=== PATIENT | male | born 1960 | race African-American/Black ===

== ENCOUNTER 2024-05-10 10:28 | Inpatient (IN) | payer MEDICARE, OTHER ==
[~2024-05-10] VITALS: Ht 172.7 cm; Wt 68.0 kg
[~2024-05-10 10:28] MED LIST: DILT30TA3 PO
[2024-05-10 10:34] VITALS: O2SAT 98
[2024-05-10] MEDS: SODIUM CHLORIDE 0.9% 1000ML BAG (SEPSIS BOLUS) IV ONE (11:23)
[2024-05-10] MEDS: PIPERACILLIN/TAZO 3.375G/50ML 50 ML IV ONE (11:56)
[2024-05-10 12:24] LABS: HEMATOCRIT. 33.8 % (42.0-52.0); HEMOGLOBIN. 11.2 g/dL (14.0-18.0); INR 0.9; MEAN CORPUSCULAR HEMOGLOBIN 28.4 pg (28.0-32.0); MEAN CORPUSCULAR HGB CONC 33.2 g/dL (31.0-37.0); MEAN CORPUSCULAR VOLUME 85.6 fL (80.0-94.0); MEAN PLATELET VOLUME 8.3 fl (7.4-10.4); PLATELET 275 x1000/uL (130-400); RED BLOOD CELL COUNT 3.95 mill/uL (4.7-6.1); RED CELL DISTRIBUTION WIDTH 15.7 % (11.6-14.6); WHITE BLOOD COUNT 15.3 x1000/uL (4.5-11.0)
[2024-05-10 12:25] LABS: CARBON DIOXIDE 22 mEq/L (21-32); CHLORIDE 103 mEq/L (98-107); POTASSIUM 5.1 mEq/L (3.5-5.1); SODIUM 135 mEq/L (136-145)
[2024-05-10 12:26] LABS: CALCIUM 10.1 mg/dL (8.7-10.4)
[2024-05-10 12:30] LABS: TROPONIN I HIGH SENSITIVITY 43 ng/L (3.0-53); UREA NITROGEN BLOOD 43 mg/dL (9-23)
[2024-05-10 12:32] LABS: ALBUMIN 4.5 g/dL (3.2-4.8); ASPARTATE AMINOTRANSFERASE 20 IU/L (<34); CREATINE KINASE 463 IU/L (46-171)
[2024-05-10 12:33] LABS: BILIRUBIN DIRECT 0.3 mg/dL (<=3.0); PROTEIN TOTAL 7.1 g/dL (6.0-8.3)
[2024-05-10 13:01] LABS: DIFFERENTIAL COMMENT 1
[2024-05-10 13:03] LABS: ALANINE AMINOTRANSFERASE < 7 IU/L (10-49)
[2024-05-10 13:34] LABS: CREATININE 1.7 mg/dL (0.6-1.3)
[2024-05-10 13:35] LABS: ETHANOL BLOOD < 10 mg/dL (<10)
[2024-05-10 13:37] LABS: GLUCOSE 42 mg/dL (70-105)
[2024-05-10] MEDS: DEXTROSE 50% WATER 50ML SYRINGE IV NR (13:50)
[2024-05-10] MEDS ORDERED: ONDANSETRON HCL 4MG/2ML INJ IV PRN (14:30)
[2024-05-10] MEDS ORDERED: DOXYCYCLINE 100MG/100ML 100 ML IV SCH (15:00)
[2024-05-10] MEDS: LISINOPRIL 40MG TABLET PO SCH (15:30)
[2024-05-10] MEDS: THIAMINE HCL 100MG TABLET PO SCH (15:30)
[2024-05-10] MEDS: AMLODIPINE 10MG TABLET PO SCH (15:30)
[2024-05-10] MEDS: HYDROCHLOROTHIAZIDE 25MG TABLET PO SCH (15:30)
[2024-05-10] MEDS ORDERED: LISI40TA13 PO (15:44)
[2024-05-10] MEDS ORDERED: ATOR40TA70 PO (15:44)
[2024-05-10] MEDS ORDERED: INSU100I24 SUBCUT (15:44)
[2024-05-10] MEDS ORDERED: HYDR25TA PO (15:44)
[2024-05-10] MEDS ORDERED: ASPI-1406 PO (15:44)
[2024-05-10] MEDS ORDERED: AMLO10TA80 PO (15:44)
[2024-05-10 15:53] LABS: ANISOCYTOSIS 1+; PLATELET ESTIMATE NORMAL
[2024-05-10] MEDS: DEXT 5%/0.9% NACL 1,000 ML IV SCH (18:40)
[2024-05-10] MEDS: DOXYCYCLINE 100MG/100ML 100 ML IV SCH (18:59)
[2024-05-10] MEDS ORDERED: PIPERACILLIN/TAZO 3.375G/50ML 50 ML IV SCH (20:00)
[2024-05-10] MEDS: PIPERACILLIN/TAZO 3.375G/50ML 50 ML IV SCH (20:35)
[2024-05-10] MEDS: SODIUM CHLORIDE 0.9% 500 ML IV ONE ×2 (20:55→21:32)
[2024-05-10 22:00] VITALS: BP 110/78; PULSE 109; RESP 20; TEMP 36.8072
[2024-05-11] VITALS: BP 101/60; PULSE 79; RESP 18; TEMP 36.78072; O2SAT 97
[2024-05-11] MEDS: ATORVASTATIN CALCIUM 40MG TABLET PO SCH (00:24)
[2024-05-11 04:00] VITALS: BP 101/68; PULSE 113; RESP 20; TEMP 36.89184; O2SAT 98
[2024-05-11 05:26] LABS: BASOPHILS % 0.1 % (0.0-2.0); EOSINOPHILS % 0.3 % (0.0-5.0); HEMATOCRIT. 30.1 % (42.0-52.0); HEMOGLOBIN. 10.2 g/dL (14.0-18.0); LYMPHOCYTES % 7.5 % (20.0-50.0); MEAN CORPUSCULAR HEMOGLOBIN 28.8 pg (28.0-32.0); MEAN CORPUSCULAR HGB CONC 33.8 g/dL (31.0-37.0); MEAN CORPUSCULAR VOLUME 85.4 fL (80.0-94.0); MEAN PLATELET VOLUME 8.5 fl (7.4-10.4); MONOCYTES % 3.1 % (2.0-8.0); PLATELET 246 x1000/uL (130-400); RED BLOOD CELL COUNT 3.53 mill/uL (4.7-6.1); RED CELL DISTRIBUTION WIDTH 15.8 % (11.6-14.6); WHITE BLOOD COUNT 18.2 x1000/uL (4.5-11.0)
[2024-05-11 05:54] LABS: CHLORIDE 100 mEq/L (98-107); SODIUM 133 mEq/L (136-145)
[2024-05-11 05:55] LABS: CALCIUM 9.8 mg/dL (8.7-10.4); CARBON DIOXIDE 25 mEq/L (21-32)
[2024-05-11 06:00] LABS: CREATININE 1.2 mg/dL (0.6-1.3)
[2024-05-11 06:01] LABS: UREA NITROGEN BLOOD 31 mg/dL (9-23)
[2024-05-11 06:11] LABS: GLUCOSE 202 mg/dL (70-105)
[2024-05-11 08:00] VITALS: BP 91/64; PULSE 70; RESP 18; TEMP 36.72516; O2SAT 95
[2024-05-11] MEDS: ASPIRIN 81MG EC TABLET PO SCH (08:23)
[2024-05-11] MEDS: SODIUM CHLORIDE 0.9% 1,000 ML IV SCH (08:23)
[2024-05-11 12:00] VITALS: BP 106/68; PULSE 124; RESP 18; TEMP 36.44736; O2SAT 96
[2024-05-11 16:00] VITALS: BP 96/68; PULSE 122; RESP 18; TEMP 36.3918; O2SAT 98
[2024-05-11 19:39] LABS: CLARITY URINE CLEAR (CLEAR); COLOR URINE YELLOW (YELLOW); GLUCOSE URINE 3+ (NEGATIVE); KETONES URINE NEGATIVE (NEGATIVE); LEUKOCYTE ESTERASE URINE NEGATIVE (NEGATIVE); NITRITE URINE NEGATIVE (NEGATIVE); OCCULT BLOOD URINE NEGATIVE (NEGATIVE); PROTEIN URINE NEGATIVE (NEGATIVE); SPECIFIC GRAVITY URINE 1.019 (1.005-1.030)
[2024-05-11 19:57] LABS: *AMPHETAMINES SCREEN URINE NEGATIVE (NEGATIVE); *BARBITURATES SCREEN URINE NEGATIVE (NEGATIVE); *BENZODIAZEPINES SCREEN URINE NEGATIVE (NEGATIVE); *COCAINE SCREEN URINE NEGATIVE (NEGATIVE); CANNABINOID URINE SCREEN NEGATIVE (NEGATIVE); ECSTASY MDMA SCREEN URINE NEGATIVE (NEGATIVE); METHADONE URINE SCREEN NEGATIVE (NEGATIVE); OPIATES URINE SCREEN PRESUMPTIVE POSITIVE (NEGATIVE); PHENCYCLIDINE URINE SCREEN NEGATIVE (NEGATIVE)
[2024-05-11 20:00] VITALS: BP 96/71; PULSE 114; RESP 16; TEMP 36.16956; O2SAT 95
[2024-05-11 20:01] LABS: BACTERIA URINE TRACE; RBC URINE NONE SEEN /hpf (0-2); SQUAMOUS EPITHELIAL CELL URINE RARE /lpf (RARE/1+); WBC URINE 0-2 /hpf (0-2)
[2024-05-12] VITALS: BP 107/74; PULSE 121; RESP 18; TEMP 36.50292; O2SAT 95
[2024-05-12 07:34] LABS: CARBON DIOXIDE 23 mEq/L (21-32); CHLORIDE 104 mEq/L (98-107); POTASSIUM 4.1 mEq/L (3.5-5.1); SODIUM 137 mEq/L (136-145)
[2024-05-12 07:35] LABS: CALCIUM 10.3 mg/dL (8.7-10.4)
[2024-05-12 07:40] LABS: CREATININE 0.9 mg/dL (0.6-1.3); GLUCOSE 157 mg/dL (70-105); UREA NITROGEN BLOOD 18 mg/dL (9-23)
[2024-05-12 08:00] VITALS: BP 96/70; PULSE 130; RESP 18; TEMP 37.11408; O2SAT 97
[2024-05-12] MEDS ORDERED: SODIUM CHLORIDE 0.9% 100 ML IV ONE (09:00)
[2024-05-12] MEDS: DEXT 5%/0.9% NACL 1,000 ML IV SCH (09:30)
[2024-05-12] MEDS: SODIUM CHLORIDE 0.9% 1,000 ML IV SCH (09:35)
[2024-05-12 11:35] LABS: BASOPHILS % 0.2 % (0.0-2.0); EOSINOPHILS % 0.3 % (0.0-5.0); HEMATOCRIT. 27.2 % (42.0-52.0); HEMOGLOBIN. 9.2 g/dL (14.0-18.0); MEAN CORPUSCULAR HGB CONC 33.8 g/dL (31.0-37.0); MEAN CORPUSCULAR VOLUME 85.6 fL (80.0-94.0); MEAN PLATELET VOLUME 8.6 fl (7.4-10.4); MONOCYTES % 6.5 % (2.0-8.0); PLATELET 246 x1000/uL (130-400); RED BLOOD CELL COUNT 3.17 mill/uL (4.7-6.1); RED CELL DISTRIBUTION WIDTH 15.7 % (11.6-14.6); WHITE BLOOD COUNT 13.9 x1000/uL (4.5-11.0)
[2024-05-12 12:00] VITALS: BP 107/71; PULSE 115; RESP 18; TEMP 36.44736; O2SAT 97
[2024-05-12 12:00] LABS: FOLIC ACID (FOLATE) SERUM 4.38 ng/mL (>5.38)
[2024-05-12 12:01] LABS: VITAMIN B12 SERUM 724 pg/mL (211-911)
[2024-05-12 16:00] VITALS: BP 105/76; PULSE 101; RESP 18; TEMP 36.44736; O2SAT 98
[2024-05-12 20:00] VITALS: BP 117/76; PULSE 102; RESP 18; TEMP 36.28068; O2SAT 95
[2024-05-13] VITALS: BP 111/77; PULSE 93; RESP 20; TEMP 36.22512; O2SAT 98
[2024-05-13 04:00] VITALS: BP 122/86; PULSE 102; RESP 18; TEMP 36.33624; O2SAT 96
[2024-05-13 07:37] LABS: PREALBUMIN 6.5 mg/dl (10.0-40.0)
[2024-05-13 08:00] VITALS: BP 113/82; PULSE 114; RESP 18; TEMP 36.78072; O2SAT 99
[2024-05-13 12:00] VITALS: BP 120/78; PULSE 101; RESP 18; TEMP 36.83628; O2SAT 99
[2024-05-13 16:00] VITALS: BP 136/68; PULSE 109; RESP 18; TEMP 36.55848; O2SAT 100
[2024-05-13 20:00] VITALS: BP_SYST 102; BP_SYST 98; BP_DIAS 65; BP_DIAS 69; PULSE 90; PULSE 91; RESP 16; RESP 17; TEMP 36.44736; TEMP 36.61404; O2SAT 100; O2SAT 99
[2024-05-14] VITALS: BP 98/65; PULSE 90; RESP 16; TEMP 36.61404; O2SAT 99
[2024-05-14 04:00] VITALS: BP 118/68; PULSE 98; RESP 20; TEMP 36.114; O2SAT 98
[2024-05-14 08:00] VITALS: BP 100/69; PULSE 87; RESP 18; TEMP 36.55848; O2SAT 98
[2024-05-14 12:00] VITALS: BP 109/75; PULSE 84; RESP 18; TEMP 36.61404; O2SAT 98
[2024-05-14 16:00] VITALS: BP 108/70; PULSE 95; RESP 18; TEMP 36.50292; O2SAT 99
[2024-05-14 16:50] LABS: BASOPHILS % 0.4 % (0.0-2.0); EOSINOPHILS % 1.4 % (0.0-5.0); HEMATOCRIT. 24.4 % (42.0-52.0); HEMOGLOBIN. 8.3 g/dL (14.0-18.0); LYMPHOCYTES % 29.1 % (20.0-50.0); MEAN CORPUSCULAR HEMOGLOBIN 29.2 pg (28.0-32.0); MEAN CORPUSCULAR HGB CONC 33.8 g/dL (31.0-37.0); MEAN CORPUSCULAR VOLUME 86.4 fL (80.0-94.0); MEAN PLATELET VOLUME 8.3 fl (7.4-10.4); MONOCYTES % 4.8 % (2.0-8.0); NEUTROPHILS % 64.3 % (40.0-76.0); PLATELET 288 x1000/uL (130-400); RED BLOOD CELL COUNT 2.83 mill/uL (4.7-6.1); RED CELL DISTRIBUTION WIDTH 15.9 % (11.6-14.6)
[2024-05-14 16:58] LABS: CHLORIDE 109 mEq/L (98-107); SODIUM 142 mEq/L (136-145)
[2024-05-14 16:59] LABS: CARBON DIOXIDE 26 mEq/L (21-32)
[2024-05-14 17:00] LABS: CALCIUM 9.2 mg/dL (8.7-10.4)
[2024-05-14 17:04] LABS: CREATININE 0.8 mg/dL (0.6-1.3)
[2024-05-14 17:05] LABS: GLUCOSE 197 mg/dL (70-105); UREA NITROGEN BLOOD 10 mg/dL (9-23)
[2024-05-14 17:12] LABS: POTASSIUM 2.8 mEq/L (3.5-5.1)
[2024-05-14] MEDS ORDERED: POTASSIUM CHLORIDE 40 MEQ in DEXT 5% WATER 230 ML IV ONE (17:30)
[2024-05-14] MEDS: POTASSIUM CHLORIDE 20MEQ TABLET SR PO NR (17:41)
[2024-05-14 20:00] VITALS: BP 100/60; PULSE 91; RESP 20; TEMP 36.3918; O2SAT 99
[2024-05-14] MEDS: DIPHENHYDRAMINE 25MG CAPSULE PO NR (21:08)
[2024-05-14] MEDS: KCL 20MEQ/100ML X 2 FOR TOTAL KCL 40MEQ/200ML IV SCH (21:08)
[2024-05-15] VITALS: BP 101/70; PULSE 92; RESP 20; TEMP 36.6696; O2SAT 98
[2024-05-15 04:00] VITALS: BP 110/73; PULSE 87; RESP 20; TEMP 36.6696; O2SAT 99
[2024-05-15 06:49] LABS: CARBON DIOXIDE 27 mEq/L (21-32); CHLORIDE 110 mEq/L (98-107); POTASSIUM 3.7 mEq/L (3.5-5.1); SODIUM 143 mEq/L (136-145)
[2024-05-15 06:55] LABS: CREATININE 0.7 mg/dL (0.6-1.3); GLUCOSE 179 mg/dL (70-105)
[2024-05-15 06:56] LABS: UREA NITROGEN BLOOD 10 mg/dL (9-23)
[2024-05-15 08:00] VITALS: BP 120/75; PULSE 78; RESP 18; TEMP 36.55848; O2SAT 98
[2024-05-15] MEDS: MAGNESIUM 2 G PREMIX 50 ML IV NR (09:00)
[2024-05-15 12:00] VITALS: BP 98/69; PULSE 95; RESP 18; TEMP 37.11408; O2SAT 100
[2024-05-15 16:00] VITALS: BP 95/68; PULSE 98; RESP 18; TEMP 36.50292; O2SAT 100
[2024-05-15 20:00] VITALS: BP 94/64; PULSE 102; RESP 18; TEMP 36.44736; O2SAT 100
[2024-05-16] VITALS: BP 94/66; PULSE 104; RESP 20; TEMP 36.55848; O2SAT 100
[2024-05-16] MEDS: ACETAMINOPHEN 325MG TABLET PO PRN (03:58)
[2024-05-16] MEDS: DIPHENHYDRAMINE 25MG CAPSULE PO NR (03:58)
[2024-05-16 04:30] VITALS: BP 103/67; PULSE 88; RESP 18; TEMP 37.11408; O2SAT 98
[2024-05-16 08:00] VITALS: BP 99/66; PULSE 107; RESP 20; TEMP 36.78072; O2SAT 99
[2024-05-16 09:53] LABS: BASOPHILS % 0.4 % (0.0-2.0); EOSINOPHILS % 2.5 % (0.0-5.0); HEMATOCRIT. 27.5 % (42.0-52.0); HEMOGLOBIN. 9.4 g/dL (14.0-18.0); LYMPHOCYTES % 29.6 % (20.0-50.0); MEAN CORPUSCULAR HEMOGLOBIN 29.4 pg (28.0-32.0); MEAN CORPUSCULAR HGB CONC 34.4 g/dL (31.0-37.0); MEAN CORPUSCULAR VOLUME 85.5 fL (80.0-94.0); MEAN PLATELET VOLUME 7.8 fl (7.4-10.4); MONOCYTES % 5.4 % (2.0-8.0); NEUTROPHILS % 62.1 % (40.0-76.0); PLATELET 323 x1000/uL (130-400); RED BLOOD CELL COUNT 3.21 mill/uL (4.7-6.1); RED CELL DISTRIBUTION WIDTH 15.9 % (11.6-14.6)
[2024-05-16 10:01] LABS: CARBON DIOXIDE 27 mEq/L (21-32); CHLORIDE 103 mEq/L (98-107); POTASSIUM 3.4 mEq/L (3.5-5.1); SODIUM 137 mEq/L (136-145)
[2024-05-16 10:07] LABS: CREATININE 0.8 mg/dL (0.6-1.3); GLUCOSE 268 mg/dL (70-105); UREA NITROGEN BLOOD 14 mg/dL (9-23)
[2024-05-16 12:00] VITALS: BP 100/65; PULSE 100; RESP 18; TEMP 37.11408; O2SAT 100
[2024-05-16 16:00] VITALS: BP 101/65; PULSE 106; RESP 20; TEMP 36.44736; O2SAT 100
== END 2024-05-16 18:07 | DRG 871 ==
LOC: ER 10:28 → 5WST 13:27 → EDBEDREQ 13:33 → EDBEDREQTM 13:33 → 8WST 21:33
PROVIDERS: ADMIT Hospitalist; ATTEND Hospitalist
DX: A41.9 Sepsis, unspecified organism (principal); G93.41 Metabolic encephalopathy; J69.0 Pneumonitis due to inhalation of food and vomit; I63.81 Other cerebral infarction due to occlusion or stenosis of small artery; N17.9 Acute kidney failure, unspecified; E46 Unspecified protein-calorie malnutrition; R32 Unspecified urinary incontinence; E11.22 Type 2 diabetes mellitus with diabetic chronic kidney disease; I12.9 Hypertensive chronic kidney disease with stage 1 through stage 4 chronic kidney disease, or unspecified chronic kidney disease; N18.9 Chronic kidney disease, unspecified; L89.150 Pressure ulcer of sacral region, unstageable; R62.7 Adult failure to thrive; E11.649 Type 2 diabetes mellitus with hypoglycemia without coma; E83.42 Hypomagnesemia; E87.6 Hypokalemia; Z68.22 Body mass index [BMI] 22.0-22.9, adult; Z79.82 Long term (current) use of aspirin; Z79.899 Other long term (current) drug therapy; Z86.73 Personal history of transient ischemic attack (TIA), and cerebral infarction without residual deficits
CPT/HCPCS: 36415; 70551; 71045; 80048; 80061; 80076; 80305; 80320; 81003; 82040; 82550; 82607; 82746; 82962; 83036; 83605; 83735; 83880; 84100; 84134; 84145; 84484; 85025; 92610; 93005; 93880; 97116; 97162; 97167; 99291; J2543; J3475; J3480; J3490; J7030; J7042; Q0163; G0480